=== PATIENT | female | born 1940 | race Caucasian/White ===

== ENCOUNTER → 2018-12-05 | Outpatient (CLI) | payer OTHER | LOC: RAD 09:15 | DX: J13 Pneumonia due to Streptococcus pneumoniae (principal); R91.8 Other nonspecific abnormal finding of lung field; M41.84 Other forms of scoliosis, thoracic region; Z90.49 Acquired absence of other specified parts of digestive tract ==

== ENCOUNTER → 2018-12-22 | Outpatient (CLI) | payer OTHER | LOC: CAT 11:15 | DX: J13 Pneumonia due to Streptococcus pneumoniae (principal); M41.85 Other forms of scoliosis, thoracolumbar region; Z88.0 Allergy status to penicillin ==